=== PATIENT | female | born 1935 | race Caucasian/White ===

== ENCOUNTER 2020-12-23 15:39 | Emergency (ER) | payer BC, MEDICAID ==
[~2020-12-23] VITALS: Ht 160 cm; Wt 63.5 kg
[2020-12-23 16:09] VITALS: BP_SYST 126
--- NOTE | 2020-12-23 16:17 | NUR ---
Patient to ER bed 3 to gown for evaluation. Side rails up. Report given to LIAT ROWLEY.
--- NOTE | 2020-12-23 16:18 | NUR ---
ER at bedside examining patient.
[2020-12-23] MEDS ORDERED: KETOROLAC TROMETHAMINE 30 MG VIAL IM ONE (16:30)
[2020-12-23] MEDS ORDERED: HYDROcodone/ACETAMIN 5-325 MG TAB (NORCO/ VICODIN) PO ONE (16:30)
--- NOTE | 2020-12-23 18:34 | NUR ---
RELIEF OF PAIN NOTED AFTER PAIN MANAGEMENT GIVEN. PT IS CALM AND X RAYS HAVE BEEN DONE.
[2020-12-23] MEDS ORDERED: HYDR-3917 PO (18:37)
[2020-12-23] MEDS ORDERED: IBUP-1969 PO (18:37)
--- NOTE | 2020-12-23 18:41 | NUR ---
PREPARING FOR [facility].
[2020-12-23 19:04] VITALS: BP_SYST 126
--- NOTE | 2020-12-23 19:04 | NUR ---
Patient given written and verbal discharge instructions and verbalizes understanding. ER MD discussed with patient the results and treatment provided. Patient in stable condition. ID arm band removed. Rx of MOTRIN AND NORCO given. Patient educated on pain management and to follow up with PMD. Pain Scale 0/10. Opportunity for questions provided and answered. Medication side effect fact sheet provided.
== END 2020-12-23 19:04 | disposition home or self-care (01) ==
LOC: SED 15:39
DX: M16.11 Unilateral primary osteoarthritis, right hip (principal)
CPT/HCPCS: 72170; 73502; 96372; 99284; J1885

== ENCOUNTER 2021-03-13 07:39 | Emergency (ER) | payer OTHER, MEDICAID, SELFPAY ==
[~2021-03-13] VITALS: Ht 137.2 cm; Wt 54.4 kg
[~2021-03-13 07:39] MED LIST: HYDR-3917 PO; IBUP-1969 PO
--- NOTE | 2021-03-13 07:49 | NUR ---
PT COMES TO ER AMBULATING WITH C/O CONSTANT COUGH X 6 DAYS WITH ASSOCIATED CHILLS, DENIES FEVERS. PT BROUGHT IN BY PELON FROM HOME. REPORTS HISTORY OF ASTHMA, BUT HASNT TAKEN ANY MEDS FOR YEARS. PT AAOX4, KHMER SPEAKING ONLY. RESP EVEN AND [id number] BILATERALLY, CONSTANT PRODUCTIVE COUGH, ON RA @ 97%. REPORTS CHEST WALL PAIN WITH COUGH ONLY. SKIN W/D/I. DENIES ANY NAUSEA/VOMITING. SAFETY PRECAUTIONS IN PLACE, WILL CONT TO MONITOR.
[2021-03-13 07:55] VITALS: BP_SYST 151
--- NOTE | 2021-03-13 07:59 | NUR ---
DR DE JESUS IN ROOM FOR EXAM
[2021-03-13] MEDS ORDERED: IPRATROPIUM/ALBUTEROL SULFATE 3 ML AMPUL.NEB (DUONEB) INH ONE (08:00)
[2021-03-13] MEDS ORDERED: methylPREDNISolone SOD SUCC/PF 62.5 MG/ML VIAL IVP ONE (08:00)
--- NOTE | 2021-03-13 08:02 | NUR ---
[facility]
--- NOTE | 2021-03-13 08:11 | NUR ---
BREATHING TX AT THIS TIME, PT TOLERATING WELL.
[2021-03-13 08:24] LABS: BASOPHILS # (AUTO) 0.1 K/uL (0.0-0.2); BASOPHILS % (AUTO) 1.5 % (0.0-2.0); EOSINOPHILS # (AUTO) 0.2 K/uL (0.0-0.4); HEMATOCRIT 39.2 % (36-48); HEMOGLOBIN 12.8 g/dL (12.0-16.0); LYMPHOCYTES # (AUTO) 2.3 K/uL (1.0-5.5); MEAN CORPUSCULAR HEMOGLOBIN 28 pg (27-31); MEAN CORPUSCULAR HGB CONC 33 % (32-36); MEAN CORPUSCULAR VOLUME 85 fL (79.0-98.0); MONOCYTES # (AUTO) 0.4 K/uL (0.0-1.0); MONOCYTES % (AUTO) 7.3 % (1.7-9.3); NEUTROPHILS # (AUTO) 2.6 K/uL (1.8-7.7); NEUTROPHILS % (AUTO) 46.2 % (40.0-70.0); PLATELET COUNT (AUTO) 177 K/uL (130-430); RED BLOOD CELL COUNT(AUTO) 4.63 MIL/uL (4.2-6.2); RED CELL DISTRIBUTION WIDTH 14.5 % (9.0-15.0); WHITE BLOOD COUNT (AUTO) 5.6 K/uL (4.8-10.8)
[2021-03-13 08:29] LABS: ANION GAP 10 (5-15); CALCIUM 9.2 mg/dL (8.4-11.0); CHLORIDE 104 mmol/L (98-107); CREATININE 1.05 mg/dL (0.55-1.30); GLUCOSE 110 mg/dL (70-99); POTASSIUM 3.8 mmol/L (3.5-5.1); SODIUM SERUM 139 mmol/L (136-145); UREA NITROGEN, BLOOD 15 mg/dL (8-21)
[2021-03-13 08:35] LABS: ALANINE AMINOTRANSFERASE 22 U/L (12-78); ALBUMIN 4.1 g/dL (3.4-4.8); ASPARTATE AMINOTRANSFERASE 22 U/L (10-37); TOTAL BILIRUBIN 0.5 mg/dL (0.0-1.0)
--- NOTE | 2021-03-13 08:54 | NUR ---
PT IN NAD. RESP EVEN AND UNLABORED, ON RA @95%.
[2021-03-13] MEDS ORDERED: PRED50TA PO (09:36)
[2021-03-13] MEDS ORDERED: D-ME118S48 PO (09:36)
[2021-03-13] MEDS ORDERED: DOXY100C5 PO (09:36)
--- NOTE | 2021-03-13 10:00 | NUR ---
Patient given written and verbal discharge instructions and verbalizes understanding. ER MD discussed with patient the results and treatment provided. Patient in stable condition. ID arm band removed. IV catheter removed intact and dressing applied, no active bleeding. Rx of [PREDNIONE,] given. Patient educated on pain management and to follow up with PMD. Pain Scale [0]. Opportunity for questions provided and answered. Medication side effect fact sheet provided.
[2021-03-13 10:07] VITALS: BP_SYST 139
== END 2021-03-13 10:07 | disposition home or self-care (01) ==
LOC: SED 07:39
DX: J44.1 Chronic obstructive pulmonary disease with (acute) exacerbation (principal); Z79.899 Other long term (current) drug therapy; Z20.822 Contact with and (suspected) exposure to COVID-19
CPT/HCPCS: 36415; 71045; 80053; 83605; 84484; 85025; 87040; 87426; 93005; 94640; 96374; 99285; J2930

== ENCOUNTER 2022-01-11 10:10 | Emergency (ER) | payer OTHER, MEDICAID ==
[~2022-01-11] VITALS: Ht 157.5 cm; Wt 55.3 kg
[~2022-01-11 10:10] MED LIST changes: +D-ME118S48 PO; +DOXY100C5 PO; +PRED50TA PO
[2022-01-11 10:25] VITALS: BP_SYST 148
--- NOTE | 2022-01-11 10:28 | NUR ---
Patient to ER bed 7 to gown for evaluation. Side rails up. Report given to HALLEY CAMPBELL.
--- NOTE | 2022-01-11 10:57 | NUR ---
PT BROUGHT IN BY CAR WITH DAUGHTER AFTER FALLING IN SHOWER AFTER A SLIP, PT REPORTS PAIN 9/10 PAIN TO LOWER BACK AND SPINE WITH PAIN FEELING CENTERED IN STOMACH, MINOR REDNESS TO SACRAL LOWER BACK AREA WITH SKIN INTACT, SR ON MONITOR AND BREATHING FINE ON ROOM AIR
[2022-01-11] MEDS ORDERED: KETOROLAC TROMETHAMINE 30 MG VIAL IM ONE (11:00)
[2022-01-11] MEDS ORDERED: HYDROcodone/ACETAMIN 5-325 MG TAB (NORCO/ VICODIN) PO ONE (11:00)
--- NOTE | 2022-01-11 11:00 | NUR ---
ER at bedside examining patient.
[2022-01-11 11:35] LABS: BASOPHILS # (AUTO) 0.1 K/uL (0.0-0.2); BASOPHILS % (AUTO) 1.3 % (0.0-2.0); EOSINOPHILS # (AUTO) 0.1 K/uL (0.0-0.4); EOSINOPHILS % (AUTO) 3.4 % (0.0-4.0); HEMATOCRIT 35.8 % (36-48); LYMPHOCYTES # (AUTO) 1.1 K/uL (1.0-5.5); LYMPHOCYTES % (AUTO) 24.7 % (20.5-51.5); MEAN CORPUSCULAR VOLUME 85 fL (79.0-98.0); MONOCYTES # (AUTO) 0.3 K/uL (0.0-1.0); MONOCYTES % (AUTO) 7.8 % (1.7-9.3); NEUTROPHILS # (AUTO) 2.7 K/uL (1.8-7.7); NEUTROPHILS % (AUTO) 62.8 % (40.0-70.0); PLATELET COUNT (AUTO) 157 K/uL (130-430); RED BLOOD CELL COUNT(AUTO) 4.19 MIL/uL (4.2-6.2); RED CELL DISTRIBUTION WIDTH 15.2 % (9.0-15.0); WHITE BLOOD COUNT (AUTO) 4.3 K/uL (4.8-10.8)
[2022-01-11 11:45] LABS: BILIRUBIN,URINE NEGATIVE (NEGATIVE); BLOOD, URINE 2+ (NEGATIVE); COLOR,URINE YELLOW (YELLOW); GLUCOSE,URINE NEGATIVE (NEGATIVE); KETONES,URINE NEGATIVE (NEGATIVE); LEUKOCYTE ESTERASE ,URINE TRACE (NEGATIVE); NITRITE, URINE NEGATIVE (NEGATIVE); PH,URINE 5.5 (5.0-8.0); PROTEIN URINE NEGATIVE (NEGATIVE); UROBILINOGEN,URINE 0.2 (0.2-1.0)
[2022-01-11 11:51] LABS: CLARITY/URINE SLIGHTLY HAZY (CLEAR)
--- NOTE | 2022-01-11 12:07 | NUR ---
PT STATES PAIN MEDICINE HELPS RELIEVE SOME PAIN, RESTING IN BED AWATING XRAY
[2022-01-11 12:13] LABS: ANION GAP 7 (5-15); CALCIUM 8.7 mg/dL (8.4-11.0); CHLORIDE 106 mmol/L (98-107); CREATININE 0.98 mg/dL (0.55-1.30); GLUCOSE 103 mg/dL (70-99); UREA NITROGEN, BLOOD 13 mg/dL (8-21)
[2022-01-11 12:17] LABS: ALANINE AMINOTRANSFERASE 24 U/L (12-78); ALBUMIN 3.6 g/dL (3.4-4.8); AMYLASE 34 U/L (0-100); ASPARTATE AMINOTRANSFERASE 24 U/L (10-37); LIPASE 57 U/L (73-393); TOTAL BILIRUBIN 0.9 mg/dL (0.0-1.0)
[2022-01-11 12:20] LABS: BACTERIA,URINE MODERATE /HPF (None Seen)
[2022-01-11 14:16] VITALS: BP_SYST 123
[2022-01-11] MEDS ORDERED: HYDR-3917 PO (15:52)
[2022-01-11] MEDS ORDERED: IBUP-1969 PO ×2 (15:52)
--- NOTE | 2022-01-11 16:09 | NUR ---
pt in bed resting with family at bedside awaiting results of CT
--- NOTE | 2022-01-11 17:22 | NUR ---
gavin Dorado given written and verbal discharge instructions and verbalizes understanding. ER MD discussed with patient the results and treatment provided. Patient in stable condition. ID arm band removed. IV catheter removed intact and dressing applied, no active bleeding. Rx of given. Patient educated on pain management and to follow up with PMD. Pain Scale . Opportunity for questions provided and answered. Medication side effect fact sheet provided.
== END 2022-01-11 17:22 | disposition home or self-care (01) ==
LOC: SED 10:10
DX: S33.5XXA Sprain of ligaments of lumbar spine, initial encounter (principal); S70.02XA Contusion of left hip, initial encounter; I10 Essential (primary) hypertension; Z79.899 Other long term (current) drug therapy; W01.0XXA Fall on same level from slipping, tripping and stumbling without subsequent striking against object, initial encounter; Y93.89 Activity, other specified; Y92.89 Other specified places as the place of occurrence of the external cause; Y99.8 Other external cause status
CPT/HCPCS: 99284; 74176; 80053; 81000; 82150; 83690; 85025; 87086; 36415; 76376; 96372; 83605; J1885; J7030

== ENCOUNTER 2022-01-21 13:17 | Inpatient (IN) | payer OTHER, MEDICAID ==
[~2022-01-21] VITALS: Ht 152.4 cm; Wt 55.4 kg
[2022-01-21 14:03] VITALS: BP_SYST 128
--- NOTE | 2022-01-21 14:51 | NUR ---
Placed in room 5 . Placed on cardiac catheterization technologist, blood pressure machine and pulse oximeter. To gown for exam. Side rails up.
--- NOTE | 2022-01-21 15:02 | NUR ---
REPORT GIVEN TO HALLEY TIERNEY FOR CONTINUING CARE
--- NOTE | 2022-01-21 15:28 | NUR ---
Patient brought in from home accompanied by daughter. Patient is primarily Burundian speaking, daughter is at bedside. Daughter reports that she was changing patient's clothes when she reacehd over to grab her bra and patient started to lean toward her side and was unable to catch her. Patient left sided jaw hit the side table before falling. purple discoloration noted on left jaw. Daughter denies LOC also reports that patient was seen last week for back pain and still continues to have back pain in lumbar region. PAtient denies any pain with movement only on palpation of back. Patient AOx3 baseline and normally walks without assistance but daughter reports she has been using walker this week.
--- NOTE | 2022-01-21 15:30 | NUR ---
ER at bedside examining patient.
[2022-01-21 15:55] LABS: ANION GAP 9 (5-15); CHLORIDE 105 mmol/L (98-107); CREATININE 1.22 mg/dL (0.55-1.30); GLUCOSE 93 mg/dL (70-99); POTASSIUM 4.1 mmol/L (3.5-5.1); UREA NITROGEN, BLOOD 20 mg/dL (8-21)
[2022-01-21 16:00] LABS: ALANINE AMINOTRANSFERASE 19 U/L (12-78); ALBUMIN 3.7 g/dL (3.4-4.8); ASPARTATE AMINOTRANSFERASE 15 U/L (10-37); TOTAL BILIRUBIN 0.4 mg/dL (0.0-1.0)
[2022-01-21 16:02] LABS: BASOPHILS # (AUTO) 0.1 K/uL (0.0-0.2); BASOPHILS % (AUTO) 0.9 % (0.0-2.0); EOSINOPHILS # (AUTO) 0.1 K/uL (0.0-0.4); HEMATOCRIT 36.4 % (36-48); HEMOGLOBIN 12.2 g/dL (12.0-16.0); LYMPHOCYTES # (AUTO) 2.7 K/uL (1.0-5.5); LYMPHOCYTES % (AUTO) 29.6 % (20.5-51.5); MEAN CORPUSCULAR HEMOGLOBIN 28 pg (27-31); MEAN CORPUSCULAR HGB CONC 33 % (32-36); MEAN CORPUSCULAR VOLUME 85 fL (79.0-98.0); MONOCYTES # (AUTO) 0.8 K/uL (0.0-1.0); MONOCYTES % (AUTO) 8.7 % (1.7-9.3); NEUTROPHILS # (AUTO) 5.5 K/uL (1.8-7.7); NEUTROPHILS % (AUTO) 59.8 % (40.0-70.0); PLATELET COUNT (AUTO) 220 K/uL (130-430); RED CELL DISTRIBUTION WIDTH 14.9 % (9.0-15.0); WHITE BLOOD COUNT (AUTO) 9.2 K/uL (4.8-10.8)
--- NOTE | 2022-01-21 16:24 | NUR ---
URINE COLLECTED MID STREAM AND SENT TO LAB BY NAVI WOODRUFF
[2022-01-21 16:31] LABS: BILIRUBIN,URINE NEGATIVE (NEGATIVE); CLARITY/URINE CLEAR (CLEAR); COLOR,URINE YELLOW (YELLOW); GLUCOSE,URINE NEGATIVE (NEGATIVE); KETONES,URINE NEGATIVE (NEGATIVE); LEUKOCYTE ESTERASE ,URINE TRACE (NEGATIVE); NITRITE, URINE POSITIVE (NEGATIVE); PH,URINE 5.5 (5.0-8.0); PROTEIN URINE NEGATIVE (NEGATIVE); UROBILINOGEN,URINE 0.2 (0.2-1.0)
[2022-01-21 16:34] LABS: BLOOD, URINE TRACE (NEGATIVE)
[2022-01-21 16:48] LABS: BACTERIA,URINE MANY /HPF (None Seen); MUCUS,URINE None Seen /LPF (None Seen); RBC,URINE 0-3 /HPF (0-3)
[2022-01-21] MEDS ORDERED: ZOLPIDEM TARTRATE 5 MG TABLET PO PRN (19:15)
[2022-01-21] MEDS ORDERED: LORazepam 2 MG/ML VIAL IVP PRN (19:15)
[2022-01-21] MEDS ORDERED: ONDANSETRON HCL 4 MG/2 ML VIAL IVP PRN (19:15)
[2022-01-21] MEDS ORDERED: MUPIROCIN 2% TOPICAL OINTMENT 22 GM NS PRN (19:15)
[2022-01-21] MEDS ORDERED: ACETAMINOPHEN 325 MG TABLET PO PRN (19:15)
[2022-01-21] MEDS ORDERED: DOCUSATE SODIUM 100 MG CAPSULE PO PRN (19:15)
[2022-01-21] MEDS ORDERED: MAGNESIUM SULFATE 50 ML IV PRN (19:15)
[2022-01-21] MEDS ORDERED: MORPHINE 2 MG/ML INJ. SYRINGE IVP PRN ×2 (19:15)
[2022-01-21] MEDS ORDERED: POTASSIUM CHLORIDE 20 MEQ TAB.PRT.SR PO PRN (19:15)
[2022-01-21] MEDS ORDERED: NOR10 (19:43)
[2022-01-21] MEDS ORDERED: ALEN70TA84 (19:43)
[2022-01-21] MEDS ORDERED: PREVALITE (19:43)
[2022-01-21] MEDS ORDERED: LIP10 (19:43)
--- NOTE | 2022-01-21 20:06 | NUR ---
COVID-19 SWAB SENT TO LAB.
--- NOTE | 2022-01-21 20:10 | NUR ---
# 22 gauge angiocath placed to RT. HAND Use of asceptic technique. Opsite placed over site. Blood return noted. Flushed with 10 cc of normal saline. No evidence of infiltration noted. Patient tolerated well.
--- NOTE | 2022-01-21 20:11 | NUR ---
Medication reconciliation completed with information provided by DAUGHTER. Any prior medication reconciliation on file was reviewed and corrected.
--- NOTE | 2022-01-21 20:11 | NUR ---
DAUGHTER REPORTS SHE IS POA BUT HAS NO PAPERWORK. REPORTS MOTHER IS DNR. WILL BRING PAPERWORK IN TOMORROW AT THIS TIME PATIENT WILL BE PLACED IN FULL CODE AT THIS TIME.
--- NOTE | 2022-01-21 20:12 | NUR ---
Admit bed requested Patient will be admitted to care of . Admitted to MED SURG unit. Diagnosis UTI Inpatient (Yes or No) YESENIA Observation (Yes or No) Orientation concerns or request close to nursing station (Yes or No) NO Covid Status NEG On vent or bipap NO Isolation requirements NO Needs a sitter NO From Home (Yes or if No enter name of facility) YES Requires Dialysis (Yes or No) NO Med Rec Completed (Yes of No) Addendum: 01/21/22 at 2013 by SDEDCJM MED REC COMPLETED
[2022-01-21] MEDS: cefTRIAXone 1 GM in D5W 50 ML IV SCH (20:36)
--- NOTE | 2022-01-21 21:35 | NUR ---
Patient will be admitted to care of DR. RASCON. Admitted to MED SURG unit. Will go to room 105B. Complete and up to date summary report printed. SBAR report GIVEN TO HALLEY MORA with opportunity for questions.
[2022-01-21 22:41] VITALS: BP_SYST 132
[2022-01-21] MEDS: HEPARIN SODIUM,PORCINE 5,000 UNITS/ML VIAL SUBCUT SCH (23:43)
[2022-01-22] VITALS: BP_SYST 93
[2022-01-22] MEDS: NACL 0.9% 1,000 ML IV SCH ×3 (00:43→23:51)
--- NOTE | 2022-01-22 01:43 | NUR ---
NEURO CONSULT Consult for Dr. Roberto ( covering for Dr. Pita Kelsey) was called. [phone] RE L1 Fracture FREDA Morrison
--- NOTE | 2022-01-22 05:50 | NUR ---
PATIENT IN BED RESTING, DENIES ALL PAIN AT THIS TIME. PATIENT STATED MOST OF HER PAIN WAS WITH MOVEMENT. PATIENT ABLE TO AMB TO BATHROOM WITH MOD ASSIST X1. PATIENT TOLERATING IV FLUIDS. PATIENT IS CROATIAN SPEAKING. PATIENT IS S/P FALL WITH LACERATION TO LOWER LEFT SIDE OF HER MOUTH WITH DARK PURPLE BRUISING. PATIENT ALSO SUSTAINED BRUISING TO LEFT ARM S/P. PATIENT HAS PERSONAL WALKER IN ROOM, BUT DOES NOT LIKE USING IT.
[2022-01-22 06:43] LABS: BASOPHILS # (AUTO) 0.1 K/uL (0.0-0.2); EOSINOPHILS # (AUTO) 0.1 K/uL (0.0-0.4); EOSINOPHILS % (AUTO) 1.3 % (0.0-4.0); HEMATOCRIT 32.9 % (36-48); HEMOGLOBIN 11.4 g/dL (12.0-16.0); LYMPHOCYTES # (AUTO) 2.5 K/uL (1.0-5.5); LYMPHOCYTES % (AUTO) 33.5 % (20.5-51.5); MEAN CORPUSCULAR HEMOGLOBIN 29 pg (27-31); MEAN CORPUSCULAR HGB CONC 35 % (32-36); MEAN CORPUSCULAR VOLUME 84 fL (79.0-98.0); MONOCYTES # (AUTO) 0.6 K/uL (0.0-1.0); MONOCYTES % (AUTO) 7.7 % (1.7-9.3); NEUTROPHILS # (AUTO) 4.2 K/uL (1.8-7.7); NEUTROPHILS % (AUTO) 56.5 % (40.0-70.0); PLATELET COUNT (AUTO) 217 K/uL (130-430); RED BLOOD CELL COUNT(AUTO) 3.94 MIL/uL (4.2-6.2); RED CELL DISTRIBUTION WIDTH 14.5 % (9.0-15.0); WHITE BLOOD COUNT (AUTO) 7.5 K/uL (4.8-10.8)
[2022-01-22 07:39] LABS: ANION GAP 8 (5-15); CALCIUM 8.4 mg/dL (8.4-11.0); CHLORIDE 107 mmol/L (98-107); CREATININE 1.12 mg/dL (0.55-1.30); GLUCOSE 91 mg/dL (70-99); POTASSIUM 4.4 mmol/L (3.5-5.1); UREA NITROGEN, BLOOD 16 mg/dL (8-21)
[2022-01-22 08:00] VITALS: BP_SYST 113
--- NOTE | 2022-01-22 08:00 | NUR ---
PHYSICAL THERAPY ORDER RECEIVED AND THE CHART REVIEWED. IMAGING REPORTS L1 COMPRESSION FRACTURE AND POSSIBLE PRESSURE ON THE SPINAL CANAL. SHE IS PENDING NEURO CONSULT. ALSO , PATIENT HAS POSSIBLE FRACTURE OF THE RIGHT FOOT PROXIMAL THIRD PHALANX. RN IS TO CALL .
[2022-01-22] MEDS: HEPARIN SODIUM,PORCINE 5,000 UNITS/ML VIAL SUBCUT SCH ×2 (09:00→21:54)
[2022-01-22 11:27] VITALS: BP_SYST 117
[2022-01-22 12:00] VITALS: BP_SYST 122
--- NOTE | 2022-01-22 13:16 | NUR ---
CONSULTATION: REASON FOR CONSULT: REASON FOR CONSULT: FRACTURE BASE LEFT 3RD TOE. L1 COMPRESSION FRACTURE CONSULTING PHYSICIAN: ADE GILBERT ORDERED BY: ABIODUN SPOKE WITH DR GILBERT HIMSELF AND WILL SEE PATIENT AFTER CLINIC [phone]
--- NOTE | 2022-01-22 13:24 | NUR ---
CONSULTATION: REASON FOR CONSULT: NECROTIZING INFECTION LEG,RT FOOT CONSULTING PHYSICIAN: ADE GILBERT ORDERED BY: TREMAINE GUERIN SPOKE WITH JULIANO [phone]
[2022-01-22 15:27] VITALS: BP_SYST 115
[2022-01-22 20:00] VITALS: BP_SYST 116
[2022-01-22] MEDS ORDERED: cefTRIAXone 1 GM VIAL ONE (23:44)
[2022-01-22] MEDS: cefTRIAXone 1 GM in D5W 50 ML IV SCH (23:55)
[2022-01-23 01:19] VITALS: BP_SYST 108
--- NOTE | 2022-01-23 07:10 | NUR ---
OPENING NOTE PT IN BED, RESTING WITH EVEN, REGULAR, AND NON-LABORED BREATHING. IV RUNNING ORDERED WITH IV SITE REMAIN PATENT AND CLEAN. NO IV RELATED COMPLICATION NOTED.BED IS LOCKED AND AT LOW POSITION. WALKER AT BEDSIDE NOTED. SAFETY PRECAUTION IN PLACED. ENCOURAGED TO USE CALL LIGHT FOR ASSISTANCE. WILL CONTINUE TO MONITOR
[2022-01-23 07:32] LABS: BASOPHILS # (AUTO) 0.1 K/uL (0.0-0.2); BASOPHILS % (AUTO) 0.9 % (0.0-2.0); EOSINOPHILS # (AUTO) 0.1 K/uL (0.0-0.4); EOSINOPHILS % (AUTO) 1.7 % (0.0-4.0); HEMATOCRIT 32.6 % (36-48); LYMPHOCYTES # (AUTO) 2.9 K/uL (1.0-5.5); LYMPHOCYTES % (AUTO) 48.9 % (20.5-51.5); MEAN CORPUSCULAR HEMOGLOBIN 29 pg (27-31); MEAN CORPUSCULAR HGB CONC 34 % (32-36); MEAN CORPUSCULAR VOLUME 85 fL (79.0-98.0); MONOCYTES # (AUTO) 0.4 K/uL (0.0-1.0); MONOCYTES % (AUTO) 7.1 % (1.7-9.3); NEUTROPHILS # (AUTO) 2.5 K/uL (1.8-7.7); NEUTROPHILS % (AUTO) 41.4 % (40.0-70.0); PLATELET COUNT (AUTO) 221 K/uL (130-430); RED BLOOD CELL COUNT(AUTO) 3.83 MIL/uL (4.2-6.2); RED CELL DISTRIBUTION WIDTH 14.6 % (9.0-15.0)
[2022-01-23 08:00] VITALS: BP_SYST 135
[2022-01-23 08:46] LABS: ANION GAP 11 (5-15); CALCIUM 8.2 mg/dL (8.4-11.0); CHLORIDE 107 mmol/L (98-107); CREATININE 1.09 mg/dL (0.55-1.30); GLUCOSE 100 mg/dL (70-99); POTASSIUM 4.4 mmol/L (3.5-5.1); UREA NITROGEN, BLOOD 14 mg/dL (8-21)
[2022-01-23] MEDS ORDERED: LEVO-62 PO (08:46)
[2022-01-23] MEDS ORDERED: TRAM50TA2 PO (08:46)
[2022-01-23] MEDS: HEPARIN SODIUM,PORCINE 5,000 UNITS/ML VIAL SUBCUT SCH (09:07)
--- NOTE | 2022-01-23 09:30 | NUR ---
TLSO AT BEDSIDE TLSO AT BEDSIDE NOTED.
[2022-01-23 11:38] VITALS: BP_SYST 130
--- NOTE | 2022-01-23 11:40 | NUR ---
CALLED TAY CALLED TAY REGARDING DTR'S CONCERN. DTR WANTS TO SENT PT [facility] BECAUSE PT IS NOT COMPLIANT WITH [facility]. CM SAID SHE WILL FIND OUT IF PT IS ELIGIBLE FOR THAT.
--- NOTE | 2022-01-23 12:00 | NUR ---
HOME HEALTH CM SAID PT WILL DC HOME AND HOME HEALTH WILL FOLLOW UP
--- NOTE | 2022-01-23 13:13 | NUR ---
[facility]charge Planning: [phone] Addendum: 01/23/22 at 1521 by Belkis Garcia DP [facility] [phone] accepted pt Disposition 06
[2022-01-23] MEDS: NACL 0.9% 1,000 ML IV SCH (14:09)
[2022-01-23 15:09] VITALS: BP_SYST 161
--- NOTE | 2022-01-23 15:14 | NUR ---
Dispo code 06
--- NOTE | 2022-01-23 15:40 | NUR ---
D/C Patient Patient given medication reconciliation form and D/C instructions, including home health care. Grand daughter at bedside.Exit Care provided via wheelchair. Patient verbalized understanding. MD discussed with patient the results and treatment provided. Patient in stable condition, ID band removed. IV catheter removed, intact and dressing applied, no active bleeding. Patient educated on pain management. All belongings sent with patient.
== END 2022-01-23 15:45 | disposition home health service (06) | DRG 552 ==
LOC: SED 13:17 → SMU 19:10
PROVIDERS: ADMIT General Practice; ATTEND General Practice
DX: S32.011A Stable burst fracture of first lumbar vertebra, initial encounter for closed fracture (principal); N39.0 Urinary tract infection, site not specified; S92.911A Unspecified fracture of right toe(s), initial encounter for closed fracture; R29.6 Repeated falls; G89.29 Other chronic pain; M47.816 Spondylosis without myelopathy or radiculopathy, lumbar region; Z20.822 Contact with and (suspected) exposure to COVID-19; I10 Essential (primary) hypertension; I95.9 Hypotension, unspecified; R26.81 Unsteadiness on feet; M43.16 Spondylolisthesis, lumbar region; W18.39XA Other fall on same level, initial encounter; Z79.899 Other long term (current) drug therapy; Y93.89 Activity, other specified; Y92.89 Other specified places as the place of occurrence of the external cause; Y99.8 Other external cause status; Z98.1 Arthrodesis status
CPT/HCPCS: 36415; 70450-TC; 70486-TC; 72125-TC; 72128; 72131; 73140-TC; 76376; 80048; 80053; 81000; 83036; 83735; 85025; 87086; 96374; 96375; 99285; J0696; J1644; J2270; J2405; J7060

== ENCOUNTER 2022-03-29 10:46 | Emergency (ER) | payer OTHER, MEDICAID ==
[~2022-03-29] VITALS: Ht 149.9 cm; Wt 59.0 kg
[~2022-03-29 10:46] MED LIST changes: +ALEN70TA84; +LEVO-62 PO; +LIP10; +NOR10; +PREVALITE; +TRAM50TA2 PO
[2022-03-29 10:54] VITALS: BP_SYST 122
--- NOTE | 2022-03-29 11:30 | NUR ---
DR MENON IN TRIAGE FOR EXAM
[2022-03-29 12:12] LABS: BASOPHILS # (AUTO) 0.1 K/uL (0.0-0.2); BASOPHILS % (AUTO) 1.4 % (0.0-2.0); EOSINOPHILS # (AUTO) 0.2 K/uL (0.0-0.4); HEMATOCRIT 37.4 % (36-48); HEMOGLOBIN 12.4 g/dL (12.0-16.0); LYMPHOCYTES # (AUTO) 3.2 K/uL (1.0-5.5); LYMPHOCYTES % (AUTO) 42.5 % (20.5-51.5); MEAN CORPUSCULAR HEMOGLOBIN 29 pg (27-31); MEAN CORPUSCULAR HGB CONC 33 % (32-36); MEAN CORPUSCULAR VOLUME 89 fL (79.0-98.0); MONOCYTES # (AUTO) 0.7 K/uL (0.0-1.0); MONOCYTES % (AUTO) 9.2 % (1.7-9.3); NEUTROPHILS # (AUTO) 3.3 K/uL (1.8-7.7); NEUTROPHILS % (AUTO) 43.9 % (40.0-70.0); PLATELET COUNT (AUTO) 218 K/uL (130-430); RED BLOOD CELL COUNT(AUTO) 4.22 MIL/uL (4.2-6.2); RED CELL DISTRIBUTION WIDTH 15.4 % (9.0-15.0); WHITE BLOOD COUNT (AUTO) 7.5 K/uL (4.8-10.8)
[2022-03-29 12:33] LABS: ANION GAP 12 (5-15); CHLORIDE 110 mmol/L (98-107); CREATININE 1.18 mg/dL (0.55-1.30); GLUCOSE 95 mg/dL (70-99); UREA NITROGEN, BLOOD 20 mg/dL (8-21)
[2022-03-29 12:37] LABS: ALANINE AMINOTRANSFERASE 16 U/L (12-78); ALBUMIN 4.3 g/dL (3.4-4.8); ASPARTATE AMINOTRANSFERASE 18 U/L (10-37); TOTAL BILIRUBIN 0.7 mg/dL (0.0-1.0)
--- NOTE | 2022-03-29 13:14 | NUR ---
covid and flu swab collected
[2022-03-29] MEDS ORDERED: PRED20TA PO (14:09)
--- NOTE | 2022-03-29 15:20 | NUR ---
Patient given written and verbal discharge instructions and verbalizes understanding. ER MD discussed with patient the results and treatment provided. Patient in stable condition. ID arm band removed. Rx of PREDNISONE given. Patient educated on pain management and to follow up with PMD. Pain Scale . Opportunity for questions provided and answered. Medication side effect fact sheet provided.
== END 2022-03-29 15:20 | disposition home or self-care (01) ==
LOC: SED 10:46
DX: J40 Bronchitis, not specified as acute or chronic (principal); I10 Essential (primary) hypertension; Z20.822 Contact with and (suspected) exposure to COVID-19; Z79.899 Other long term (current) drug therapy
CPT/HCPCS: 36415; 71045; 80053; 83605; 83880; 84484; 85025; 93005; 99285

== ENCOUNTER 2022-06-12 19:10 | Inpatient (IN) | payer OTHER, MEDICAID ==
[~2022-06-12] VITALS: Ht 152.4 cm; Wt 52.6 kg
[~2022-06-12 19:10] MED LIST changes: -DOXY100C5 PO; -IBUP-1969 PO; +PRED20TA PO; -PRED50TA PO
--- NOTE | 2022-06-12 19:15 | NUR ---
Patient to ER bed 03 to gown for evaluation. Side rails up.
--- NOTE | 2022-06-12 19:20 | NUR ---
Report given to HALLEY FINLEY.
[2022-06-12 19:22] VITALS: BP_SYST 140
--- NOTE | 2022-06-12 19:24 | NUR ---
Report received from HALLEY Laughlin. Patient came to bed for vomiting, unsteady gait, bilateral extremities weak but steady. Patient had been vomiting at home. Patient's daughter said that patient got breathing treatment at home. at bedside to MSE patient. Patient appears to have tachycardia elevated heart rate on playground monitor.
--- NOTE | 2022-06-12 19:41 | NUR ---
# 16 FR In and Out catheter with use of sterile technique. Immediate return of 20 ml yellow urine noted. Urine sample collected and sent to lab. Pt tolerated procedure well Patient unable to toilet self.
[2022-06-12] MEDS ORDERED: ONDANSETRON HCL 4 MG/2 ML VIAL IVP ONE (19:45)
[2022-06-12] MEDS ORDERED: cefTRIAXone 1 GM IVPB PREMIX 50 ML IV ONE (19:45)
[2022-06-12] MEDS ORDERED: NS 1000 ML IV.SOLN IV ONE (19:45)
[2022-06-12 19:53] LABS: BASOPHILS # (AUTO) 0.1 K/uL (0.0-0.2); BASOPHILS % (AUTO) 0.7 % (0.0-2.0); EOSINOPHILS % (AUTO) 0.1 % (0.0-4.0); HEMATOCRIT 36.6 % (36-48); HEMOGLOBIN 12.2 g/dL (12.0-16.0); LYMPHOCYTES # (AUTO) 0.6 K/uL (1.0-5.5); LYMPHOCYTES % (AUTO) 6.3 % (20.5-51.5); MEAN CORPUSCULAR HEMOGLOBIN 30 pg (27-31); MEAN CORPUSCULAR HGB CONC 33 % (32-36); MEAN CORPUSCULAR VOLUME 91 fL (79.0-98.0); MONOCYTES # (AUTO) 0.4 K/uL (0.0-1.0); MONOCYTES % (AUTO) 4.1 % (1.7-9.3); NEUTROPHILS # (AUTO) 8.4 K/uL (1.8-7.7); NEUTROPHILS % (AUTO) 88.8 % (40.0-70.0); PLATELET COUNT (AUTO) 194 K/uL (130-430); RED BLOOD CELL COUNT(AUTO) 4.04 MIL/uL (4.2-6.2); RED CELL DISTRIBUTION WIDTH 13.7 % (9.0-15.0); WHITE BLOOD COUNT (AUTO) 9.5 K/uL (4.8-10.8)
[2022-06-12] MEDS ORDERED: HYDR12.5 (20:05)
[2022-06-12] MEDS ORDERED: PREVALITE (20:05)
[2022-06-12] MEDS ORDERED: GABA-529 (20:05)
--- NOTE | 2022-06-12 20:05 | NUR ---
Medication reconciliation completed with information provided by patient's daughter. Daughter does not know medication dosages at this time. Any prior medication reconciliation on file was reviewed and corrected.
[2022-06-12 20:07] LABS: ANION GAP 15 (5-15); CALCIUM 8.8 mg/dL (8.4-11.0); CHLORIDE 102 mmol/L (98-107); CREATININE 1.57 mg/dL (0.55-1.30); GLUCOSE 187 mg/dL (70-99); UREA NITROGEN, BLOOD 22 mg/dL (8-21)
[2022-06-12 20:14] LABS: ALANINE AMINOTRANSFERASE 22 U/L (12-78); ASPARTATE AMINOTRANSFERASE 24 U/L (10-37); TOTAL BILIRUBIN 0.8 mg/dL (0.0-1.0)
[2022-06-12] MEDS ORDERED: SPIR25TA6 PO (20:16)
[2022-06-12] MEDS ORDERED: LISI40TA13 PO (20:16)
[2022-06-12] MEDS ORDERED: ALBU2.5V7 (20:21)
[2022-06-12] MEDS ORDERED: FORM12CA (20:21)
[2022-06-12] MEDS ORDERED: IPRATROPIUM/ALBUTEROL SULFATE 3 ML AMPUL.NEB (DUONEB) INH PRN (20:30)
[2022-06-12] MEDS ORDERED: ACETAMINOPHEN 325 MG TABLET PO PRN (20:30)
[2022-06-12 20:35] LABS: BILIRUBIN,URINE NEGATIVE (NEGATIVE); BLOOD, URINE 3+ (NEGATIVE); CLARITY/URINE CLEAR (CLEAR); COLOR,URINE YELLOW (YELLOW); GLUCOSE,URINE NEGATIVE (NEGATIVE); KETONES,URINE NEGATIVE (NEGATIVE); LEUKOCYTE ESTERASE ,URINE NEGATIVE (NEGATIVE); NITRITE, URINE NEGATIVE (NEGATIVE); PH,URINE 5.5 (5.0-8.0); PROTEIN URINE TRACE (NEGATIVE); UROBILINOGEN,URINE 0.2 (0.2-1.0)
[2022-06-12] MEDS ORDERED: ACETAMINOPHEN 325 MG TABLET PO ONE (20:45)
[2022-06-12 20:58] LABS: BACTERIA,URINE RARE /HPF (None Seen); MUCUS,URINE 1+ /LPF (None Seen); WBC,URINE 0-3 /HPF (0-3)
[2022-06-12 20:59] LABS: HYALINE CASTS, URINE 0-10 /LPF (None Seen)
--- NOTE | 2022-06-12 21:09 | NUR ---
Admit bed requested Patient will be admitted to care of . Admitted to TELEMETRY unit. Diagnosis SEPSIS AND PNEUMONIA Inpatient (Yes or No) Y Observation (Yes or No) N Orientation concerns or request close to nursing station (Yes or No) Y Covid Status NEG On vent or bipap N Isolation requirements N Needs a sitter N From Home (Yes or if No enter name of facility) Y Requires Dialysis (Yes or No) N Med Rec Completed (Yes of No) Y
[2022-06-12] MEDS: NACL 0.9% 1,000 ML IV SCH (21:56)
[2022-06-12] MEDS: AZITHROMYCIN 500 MG in NS 250 ML IV SCH (21:57)
--- NOTE | 2022-06-12 21:59 | NUR ---
Dr. Barton made aware of patient's temperature 102.2 F. . ok for transfer
--- NOTE | 2022-06-12 22:28 | NUR ---
Patient will be admitted to care of HALLEY Mckay. Admitted to unit. Will go to room . Belongings list completed. Complete and up to date summary report printed. SBAR report to be given at bedside with opportunity for questions.
--- NOTE | 2022-06-12 22:35 | NUR ---
pPATIENT PLACED ON 2l nc DUE TO O2 going down.
[2022-06-12 22:45] VITALS: BP_SYST 103
[2022-06-13] VITALS (8 sets, daily range): BP systolic 103–140
[2022-06-13] MEDS: NACL 0.9% 1,000 ML IV SCH (06:07)
[2022-06-13] MEDS: ATORVASTATIN 10 MG TABLET PO SCH (09:54)
[2022-06-13] MEDS: amLODIPine BESYLATE 10 MG TABLET PO SCH (09:57)
[2022-06-13 12:27] LABS: BASOPHILS # (AUTO) 0.1 K/uL (0.0-0.2); BASOPHILS % (AUTO) 1.1 % (0.0-2.0); EOSINOPHILS % (AUTO) 0.3 % (0.0-4.0); HEMATOCRIT 32.7 % (36-48); HEMOGLOBIN 10.7 g/dL (12.0-16.0); LYMPHOCYTES # (AUTO) 2.3 K/uL (1.0-5.5); LYMPHOCYTES % (AUTO) 19.4 % (20.5-51.5); MEAN CORPUSCULAR HEMOGLOBIN 30 pg (27-31); MEAN CORPUSCULAR HGB CONC 33 % (32-36); MEAN CORPUSCULAR VOLUME 91 fL (79.0-98.0); MONOCYTES # (AUTO) 1.1 K/uL (0.0-1.0); MONOCYTES % (AUTO) 9.2 % (1.7-9.3); NEUTROPHILS # (AUTO) 8.4 K/uL (1.8-7.7); PLATELET COUNT (AUTO) 148 K/uL (130-430); RED CELL DISTRIBUTION WIDTH 13.7 % (9.0-15.0)
--- NOTE | 2022-06-13 12:36 | NUR ---
Social Service Assessment: The patient is an 87 year old female who was resting at time of my visit to the room. I met with the daughter at bedside and completed an initial assessment. The patient resides in a two-story home with her daughter and her family. The patient has a walker and cane at home available for her use, however she was refusing to use the DME. The patient also has a nebulizer that she is also using. She is able to independently dress and complete her ADL, but requires supervision when completing tasks. Per daughter, the patient does fall occasionally. Her support is from her family. The patient does have a Power of [employer]rap [employer], in which her daughter, Angelina Porras ([phone]) , serves as her POA. Her PCP is Dr. Jesse Lopez in [place]. the discharge plan is to return home with daughter; however, the daughter is open to the patient going to a SNF for skilled rehab if necessary. The daughter was advised that the patient will be assessed for appropriate needs and services prior to discharge. The daughter is in agreement to the discharge plan. At time of discharge, the daughter states she will transport the patient home. Addendum: 06/13/22 at 1244 by Stephanie CUEVAS Amended: Links added.
[2022-06-13 12:42] LABS: ANION GAP 10 (5-15); CALCIUM 7.9 mg/dL (8.4-11.0); CHLORIDE 108 mmol/L (98-107); CREATININE 1.06 mg/dL (0.55-1.30); GLUCOSE 96 mg/dL (70-99); UREA NITROGEN, BLOOD 17 mg/dL (8-21)
[2022-06-13] MEDS: guaiFENesin/DEXTROMETHORPHAN 10 ML UDC PO PRN ×2 (14:27→21:02)
--- NOTE | 2022-06-13 17:47 | NUR ---
ST EVALUATION COMPLETED. ST TX NOT INDICATED AT THIS TIME. RECOMMEND PO DIET OF MECHANICAL SOFT/THIN LIQUIDS. 1:1 ASSISTANCE AND FULL ASPIRATION PRECAUTIONS. PT DOES NOT LIKE COFFEE BUT PREFERS HOT TEA.
--- NOTE | 2022-06-13 18:00 | NUR ---
PATIENT HAD AN UNEVENTFUL DAY, DENIES ANY PAIN OR SOB, REQUESTED COUGH MEDS FOR PERSISTENT DRY COUGHS. PATIENT CONTINUE ON IVF FOR HYDRATION AND IV ANTIBIOTIC. SAFETY PRECAUTIONS MAINTAINED THIS SHIFT, CONTINUE WITH POC.
--- NOTE | 2022-06-13 20:30 | NUR ---
Pt family at bedside. All questions were answered about lab results and plan of care
[2022-06-13] MEDS: cefTRIAXone 1 GM in D5W 50 ML IV SCH (21:03)
[2022-06-13] MEDS: AZITHROMYCIN 500 MG in NS 250 ML IV SCH (21:51)
[2022-06-14 02:19] VITALS: BP_SYST 100
[2022-06-14] MEDS: NACL 0.9% 1,000 ML IV SCH (04:44)
[2022-06-14 07:46] VITALS: BP_SYST 136
[2022-06-14] MEDS: ATORVASTATIN 10 MG TABLET PO SCH (08:17)
[2022-06-14] MEDS: amLODIPine BESYLATE 10 MG TABLET PO SCH (08:18)
[2022-06-14] MEDS: guaiFENesin/DEXTROMETHORPHAN 10 ML UDC PO PRN ×2 (08:21→17:46)
[2022-06-14 09:23] LABS: BASOPHILS # (AUTO) 0.1 K/uL (0.0-0.2); BASOPHILS % (AUTO) 0.9 % (0.0-2.0); EOSINOPHILS # (AUTO) 0.1 K/uL (0.0-0.4); EOSINOPHILS % (AUTO) 1.3 % (0.0-4.0); HEMATOCRIT 36.4 % (36-48); HEMOGLOBIN 12.2 g/dL (12.0-16.0); LYMPHOCYTES # (AUTO) 1.2 K/uL (1.0-5.5); LYMPHOCYTES % (AUTO) 13.7 % (20.5-51.5); MEAN CORPUSCULAR HEMOGLOBIN 30 pg (27-31); MEAN CORPUSCULAR HGB CONC 34 % (32-36); MEAN CORPUSCULAR VOLUME 90 fL (79.0-98.0); MONOCYTES # (AUTO) 0.5 K/uL (0.0-1.0); MONOCYTES % (AUTO) 5.7 % (1.7-9.3); NEUTROPHILS # (AUTO) 7.1 K/uL (1.8-7.7); NEUTROPHILS % (AUTO) 78.4 % (40.0-70.0); PLATELET COUNT (AUTO) 153 K/uL (130-430); RED BLOOD CELL COUNT(AUTO) 4.04 MIL/uL (4.2-6.2); RED CELL DISTRIBUTION WIDTH 13.4 % (9.0-15.0)
[2022-06-14 09:34] LABS: ALANINE AMINOTRANSFERASE 20 U/L (12-78); ALBUMIN 3.2 g/dL (3.4-4.8); ANION GAP 9 (5-15); ASPARTATE AMINOTRANSFERASE 34 U/L (10-37); CALCIUM 8.6 mg/dL (8.4-11.0); CHLORIDE 105 mmol/L (98-107); CREATININE 0.95 mg/dL (0.55-1.30); GLUCOSE 156 mg/dL (70-99); TOTAL BILIRUBIN 0.5 mg/dL (0.0-1.0); UREA NITROGEN, BLOOD 12 mg/dL (8-21)
--- NOTE | 2022-06-14 15:35 | NUR ---
PHYSICAL THERAPY CO-SIGN The Physical Therapy Progress Notes documented by [employer] have been reviewed. Reviewed/Co-Signed by: Ck Conley Documentation Done by:JAVY GARCIA Addendum: 06/14/22 at 1535 by Ck Conley PT Amended: Links added.
[2022-06-14 16:00] VITALS: BP_SYST 134
--- NOTE | 2022-06-14 17:24 | NUR ---
ST EVALUATION COMPLETED. ST TX NOT INDICATED AT THIS TIME. RECOMMEND PO DIET OF MECHANICAL SOFT/THIN LIQUID. DISTANT SUPERVISION AND FULL ASPIRATION PRECAUTIONS.
[2022-06-14 19:00] VITALS: BP_SYST 132
--- NOTE | 2022-06-14 19:30 | NUR ---
PATIENT ALERT AND VERBALLY RESPONSIVE. A&O X3 FORGETFUL. ROMANSH SPEAKING ABLE TO MAKE NEEDS KNOWN. ADMITTED WITH DX: SEPSIS AND PULMONARY NODULAR AMYLOSOSIS. HX: ASTHMA, HTN, HLD, CHOLEYCYSTECTOMY, HLD, AND OSTEOPETROSIS. PATIENT STABLE AND AFEBRILE. VS WNL. BREATHING EVEN AND NON LABORED O2 @2LPM VIA NC. O2SAT 98%. NOTED WITH PRODUCTIVE COUGH THIN SPUTUM CLEAR. NO SOB OR DYSPNEA. DENIES PAIN. ASSISTED WITH TOILETING AND PERICARE USES BREIFS. PATIENT ABLE TO STAND WITH ASSIST. PATIENT HAS EPISODES OF INCONTINENCE. FALL PRECAUTIONS OBSERVED. PATIENT CONTINUED ON IVF ORDERED NO A/R. PATIENT CONTINUED ON IV ATB ORDERED NO A/R. IV SITE RIGHT HAND CLEAN DRY AND INTACT. CALL LIGHT WITHIN REACH. BED LOCKED IN LOWEST POSITION. FREQUENT VISUAL CHECKS MADE. EDUCATED PATIENT TO USE CALL LIGHT IN NEED OF ASSISTANCE. EDUCATED PATIENT TO AVOID GETTING UP UNASSISTED. PATIENT TURNED AND REPOSITIONED Q2H. CONTINUE PLAN OF CARE.
[2022-06-14] MEDS: cefTRIAXone 1 GM in D5W 50 ML IV SCH (21:05)
[2022-06-14] MEDS: AZITHROMYCIN 500 MG in NS 250 ML IV SCH (21:37)
[2022-06-15] VITALS (7 sets, daily range): BP systolic 116–137
[2022-06-15] MEDS: NACL 0.9% 1,000 ML IV SCH (04:53)
--- NOTE | 2022-06-15 07:16 | NUR ---
HAND OFF REPORT GIVEN. PATIENT STABLE AND AFEBRILE.VS WNL. PATIENT RESTING IN BED EASILY AWAKENED UPON AROUSAL. BREATHING EVEN AND NON LABORED. NO S/S RESPIRATORY DISTRESS NOTED. PATIENT CLEAN AND DRY. IV IN PLACE IVF RUNNING ORDERED. CALL LIGHT IN REACH. ALL NEEDS MET.
--- NOTE | 2022-06-15 09:01 | NUR ---
INITIAL ROUNDS Received pt AAOx4-pt's daughter at bedside, no s/s resp distress, no c/o pain or discomfort, plan of care for the day reviewed with pt and pt's daughter-teach back done. IVf infusing well at ordered rate with no s/s infiltration to site. Side rails up x3, bed alarm and room across from nursing station for safety. Call light within reach.
[2022-06-15] MEDS: ATORVASTATIN 10 MG TABLET PO SCH (09:46)
[2022-06-15] MEDS: amLODIPine BESYLATE 10 MG TABLET PO SCH (09:48)
[2022-06-15] MEDS ORDERED: IPRATROPIUM/ALBUTEROL SULFATE 3 ML AMPUL.NEB (DUONEB) INH PRN (12:00)
--- NOTE | 2022-06-15 12:41 | NUR ---
Dietitian Recommendations * Mechanical soft diet, Ensure BID, Sae BID (supplements yield 880 kcal/day, 45 gm protein/day) * Snacks BID between meals * Encourage good PO intakes LP, MS, RD Please refer to Nutrition Assessment for details. Addendum: 06/15/22 at [address] Amended: Links added.
[2022-06-15] MEDS ORDERED: IPRATROPIUM/ALBUTEROL SULFATE 3 ML AMPUL.NEB (DUONEB) INH SCH (13:00)
[2022-06-15] MEDS: guaiFENesin/DEXTROMETHORPHAN 10 ML UDC PO PRN ×2 (13:27→21:29)
[2022-06-15] MEDS: methylPREDNISolone SOD SUCC/PF 62.5 MG/ML VIAL IVP SCH ×2 (14:43→21:21)
[2022-06-15] MEDS: IPRATROPIUM/ALBUTEROL SULFATE 3 ML AMPUL.NEB (DUONEB) INH SCH ×3 (15:44→23:28)
[2022-06-15] MEDS: ACETYLCYSTEINE 20% 4 ML VIAL (RT) INH SCH ×2 (17:02→23:39)
[2022-06-15] MEDS: PIPERACILLIN/TAZO 2.25G/DEX-IS 50 ML IV SCH (18:11)
--- NOTE | 2022-06-15 18:39 | NUR ---
CLOSING NOTE Pt sitting up in bed eating her dinner, family at bedside. No s/s resp distress, continues to have sporadic cough. No c/o pain or discomfort. All precautions remain in place. Needs met, call light within reach
--- NOTE | 2022-06-15 19:25 | NUR ---
CHANGE OF SHIFT: endorse by day shift, admiited fro weakness and tremors with DX Sepsis. mo distress. family at bedside. call light within reach. on safety precautions.
[2022-06-15] MEDS: AZITHROMYCIN 500 MG in NS 250 ML IV SCH (21:21)
--- NOTE | 2022-06-15 21:30 | NUR ---
NOTES: pt. starts coughing and given cough syrup per pt. request. repositioned self. needs attended. call light within reach.
--- NOTE | 2022-06-16 00:30 | NUR ---
NOTES: pt. checked and sleeping. noted with occ. bouts of cough. on room air.
[2022-06-16] MEDS: PIPERACILLIN/TAZO 2.25G/DEX-IS 50 ML IV SCH ×3 (00:50→12:48)
[2022-06-16 00:53] VITALS: BP_SYST 128
--- NOTE | 2022-06-16 03:00 | NUR ---
NOTES: pt. assisted to the restroom. voided and had stool. pt. able to ambulate. needs attended.IV patent.
[2022-06-16] MEDS: IPRATROPIUM/ALBUTEROL SULFATE 3 ML AMPUL.NEB (DUONEB) INH SCH ×4 (03:48→15:19)
[2022-06-16] MEDS: NACL 0.9% 1,000 ML IV SCH (05:20)
--- NOTE | 2022-06-16 06:39 | NUR ---
CLOSING NOTES; pt. dozing on and off. IVF infusing with due antibiotic. pt. needs attended. fall risk precautions. call light within reach. pt. sinhala speaking. for further care and assistance. will endorse to incoming shift.
[2022-06-16] MEDS: methylPREDNISolone SOD SUCC/PF 62.5 MG/ML VIAL IVP SCH ×2 (07:46→14:12)
[2022-06-16 07:52] LABS: BASOPHILS % (AUTO) 0.3 % (0.0-2.0); HEMATOCRIT 31.3 % (36-48); HEMOGLOBIN 10.5 g/dL (12.0-16.0); LYMPHOCYTES # (AUTO) 0.5 K/uL (1.0-5.5); MEAN CORPUSCULAR HEMOGLOBIN 29 pg (27-31); MEAN CORPUSCULAR HGB CONC 33 % (32-36); MEAN CORPUSCULAR VOLUME 88 fL (79.0-98.0); MONOCYTES # (AUTO) 0.2 K/uL (0.0-1.0); MONOCYTES % (AUTO) 4.4 % (1.7-9.3); NEUTROPHILS # (AUTO) 3.1 K/uL (1.8-7.7); NEUTROPHILS % (AUTO) 81.3 % (40.0-70.0); PLATELET COUNT (AUTO) 198 K/uL (130-430); RED BLOOD CELL COUNT(AUTO) 3.56 MIL/uL (4.2-6.2); RED CELL DISTRIBUTION WIDTH 13.3 % (9.0-15.0)
[2022-06-16 07:56] LABS: ALANINE AMINOTRANSFERASE 24 U/L (12-78); ANION GAP 11 (5-15); ASPARTATE AMINOTRANSFERASE 24 U/L (10-37); CALCIUM 8.3 mg/dL (8.4-11.0); CHLORIDE 102 mmol/L (98-107); CREATININE 1.06 mg/dL (0.55-1.30); GLUCOSE 254 mg/dL (70-99); TOTAL BILIRUBIN 0.4 mg/dL (0.0-1.0); UREA NITROGEN, BLOOD 14 mg/dL (8-21)
--- NOTE | 2022-06-16 08:01 | NUR ---
INITIAL ROUNDS Received pt AAOx4-pt's daughter at bedside, no s/s resp distress, pt still with productive cough, no c/o pain or discomfort, plan of care for the day reviewed with pt and pt's daughter-teach back done. IVf infusing well at ordered rate with no s/s infiltration to site. Side rails up x3, bed alarm and room across from nursing station for safety. Call light within reach.
[2022-06-16 08:31] VITALS: BP_SYST 110
[2022-06-16] MEDS: ATORVASTATIN 10 MG TABLET PO SCH (09:02)
[2022-06-16] MEDS: amLODIPine BESYLATE 10 MG TABLET PO SCH (09:02)
[2022-06-16] MEDS: ACETYLCYSTEINE 20% 4 ML VIAL (RT) INH SCH ×2 (11:51→15:20)
[2022-06-16 12:09] LABS: WHITE BLOOD COUNT (AUTO) 3.8 K/uL (4.8-10.8)
[2022-06-16] MEDS: guaiFENesin/DEXTROMETHORPHAN 10 ML UDC PO PRN (13:14)
[2022-06-16] MEDS ORDERED: PRED10TA PO (14:33)
[2022-06-16] MEDS ORDERED: LEVO-62 PO (14:33)
[2022-06-16] MEDS ORDERED: LACT1TAB14 PO (14:33)
[2022-06-16] MEDS ORDERED: GUAI5SYR PO (14:37)
[2022-06-16 16:38] VITALS: BP_SYST 140
--- NOTE | 2022-06-16 18:10 | NUR ---
D/C Patient Patient given medication reconciliation form and D/C instructions. Exit Care explained and provided. Patient's daughter verbalized her understanding. MD discussed with patient the results and treatment provided. Ambulatory with steady gait for discharge to home. Patient in stable condition, ID band removed. IV catheter removed, intact and dressing applied, no active bleeding. Patient educated on pain management. All belongings sent with patient. Patient left floor via wheelchair to private vehicle in no distress.
== END 2022-06-16 18:10 | disposition home or self-care (01) | DRG 871 ==
LOC: SED 19:10 → STU 20:23 → SMU 06-13 12:55
PROVIDERS: ADMIT Internal Medicine; ATTEND Internal Medicine
DX: A41.9 Sepsis, unspecified organism (principal); G93.41 Metabolic encephalopathy; J18.9 Pneumonia, unspecified organism; N17.0 Acute kidney failure with tubular necrosis; J96.91 Respiratory failure, unspecified with hypoxia; J45.901 Unspecified asthma with (acute) exacerbation; E78.5 Hyperlipidemia, unspecified; M81.0 Age-related osteoporosis without current pathological fracture; E86.0 Dehydration; Z20.822 Contact with and (suspected) exposure to COVID-19; M75.102 Unspecified rotator cuff tear or rupture of left shoulder, not specified as traumatic; M75.101 Unspecified rotator cuff tear or rupture of right shoulder, not specified as traumatic; I10 Essential (primary) hypertension; E87.5 Hyperkalemia; Z79.899 Other long term (current) drug therapy; Z90.49 Acquired absence of other specified parts of digestive tract; Z79.891 Long term (current) use of opiate analgesic
CPT/HCPCS: 36415; 71045; 71270-TC; 76376; 76705; 80048; 80053; 81000; 83605; 84484; 85025; 87040; 87081; 87086; 92610-GN; 93005; 94640; 94760; 96365; 96375; 97112-GP; 97116-GP; 97163-GP; 97530-GP; 99285; G0378; J0456; J0696; J2405; J2543; J2930; J7050; J7060; J7608